=== PATIENT | female | born 1965 | race Caucasian/White ===

== ENCOUNTER 2021-01-29 23:13 | Emergency (ER) | payer OTHER ==
[~2021-01-29] VITALS: Ht 162.6 cm; Wt 89.8 kg
[2021-01-29 23:15] VITALS: BP 129/70
--- NOTE | 2021-01-29 23:15 | NUR ---
TO BED AMBULATORY
[2021-01-29] MEDS ORDERED: ASPIRIN 325 MG TAB PO ONE (23:55)
[2021-01-30 00:07] LABS: BASOPHILS % (AUTO) 0.9 % (0.0-2.0); EOSINOPHILS # (AUTO) 0.2 K/uL (0-0.4); EOSINOPHILS % (AUTO) 3.3 % (0.0-4.0); HEMATOCRIT 36.9 % (36-48); HEMOGLOBIN 12.5 g/dL (12.0-16.0); LYMPHOCYTES # (AUTO) 1.9 K/uL (2.5-16.5); LYMPHOCYTES % (AUTO) 34.3 % (20.5-51.1); MEAN CORPUSCULAR HEMOGLOBIN 29 pg (27-31); MEAN CORPUSCULAR HGB CONC 34 g/dL (33-37); MEAN CORPUSCULAR VOLUME 85.5 fL (80-94); MONOCYTES # (AUTO) 0.5 K/uL (0.8-1.0); MONOCYTES % (AUTO) 8.7 % (1.7-9.3); NEUTROPHILS # (AUTO) 2.9 K/uL (1.8-7.7); NEUTROPHILS % (AUTO) 52.8 % (42.2-75.2); PLATELET COUNT (AUTO) 287 K/uL (140-450); RED BLOOD CELL COUNT(AUTO) 4.32 MIL/uL (4.20-5.40); RED CELL DISTRIBUTION WIDTH 13.1 % (11.6-13.7); WHITE BLOOD COUNT (AUTO) 5.5 K/uL (4.8-10.8)
--- NOTE | 2021-01-30 00:08 | NUR ---
55 YO F BIB SELF FOR SEVERE CHEST PAIN . PAIN STARTED AT 3 PM AND RADIATES TO LT ARM AROUND 6 PM. PT STATED THAT SHE HAS A HEADACHE AND LETHARGY. PT IS NOT A SMOKER, NO FAMILY HX OF HEART ATTACK. PT DENIES N/F/V/COUGH/DIARRHEA. PT HAS MODERNA COVID VACCINE. PATIENT VITALS STABLE. NO SIGNS OF RESPIRATORY DISTRESS. MED HX: HTN , HIGH CHOLESTEROL PREVIOUS SURGERY: HYSTERECTOMY
[2021-01-30 00:23] LABS: ALBUMIN 3.8 g/dL (3.4-5.0); ANION GAP 11.9 (8-16); CARBON DIOXIDE 27.9 mmol/L (21-32); CREATININE 1.1 mg/dL (0.6-1.3); POTASSIUM 3.8 mmol/L (3.5-5.1); TOTAL BILIRUBIN 0.2 mg/dL (0.0-1.0)
--- NOTE | 2021-01-30 01:45 | NUR ---
PT LAYING DOWN QUIETLY. PROVIDED WATM BLANKET AND TURNED OFF LIGHTS. BED IN LOWEST POSITION.
[2021-01-30] MEDS ORDERED: HYDROcodone/APAP 5/325 MG 1 TAB TAB PO ONE (02:45)
[2021-01-30] MEDS ORDERED: ACET-8386 PO (04:26)
[2021-01-30 04:40] VITALS: BP 90/51
--- NOTE | 2021-01-30 04:44 | NUR ---
Patient discharged with v/s stable. Written and verbal after care instructions given and explained. Patient alert, oriented and verbalized understanding of instructions. Ambulatory with steady gait. All questions addressed prior to discharge. ID band removed. Patient advised to follow up with PMD. Rx of HYDROCONE/ACETAMINOPHEN 5-325 given. Opportunity to ask questions provided and answered.
--- NOTE | 2021-01-30 05:15 | NUR ---
The patient's care was reviewed and supervised by MARIE ORTIZ RN.
== END 2021-01-30 04:44 | disposition home or self-care (01) ==
LOC: MED 23:13
DX: R07.89 Other chest pain (principal); I10 Essential (primary) hypertension; Z90.49 Acquired absence of other specified parts of digestive tract; Z90.710 Acquired absence of both cervix and uterus; Z79.899 Other long term (current) drug therapy
CPT/HCPCS: 36415; 71045; 80053; 83690; 84484; 85025; 93005; 99285; Q0092

== ENCOUNTER 2021-05-09 18:18 | Emergency (ER) | payer OTHER ==
[~2021-05-09] VITALS: Ht 162.6 cm; Wt 88.9 kg
[~2021-05-09 18:18] MED LIST: ACET-8386 PO
[2021-05-09 18:31] VITALS: BP 157/92
[2021-05-09] MEDS ORDERED: OFLO10SO2 OP (20:27)
[2021-05-09] MEDS ORDERED: NAPR-54 PO (20:27)
[2021-05-09] MEDS ORDERED: CARB15DR61 OT (20:38)
--- NOTE | 2021-05-09 20:50 | NUR ---
SEEN BY CHINO AND PA NO NURSING INTERVENTION PROVIDED FOR THIS PATIENT.
[2021-05-09 20:52] VITALS: BP 157/92
[2021-05-09] MEDS ORDERED: OFLO5SOL27 RIGHT EAR (20:52)
--- NOTE | 2021-05-09 20:52 | NUR ---
Patient discharged with v/s stable. Written and verbal after care instructions given and explained. Patient alert, oriented and verbalized understanding of instructions. Ambulatory with steady gait. All questions addressed prior to discharge. ID band removed. Patient advised to follow up with PMD. Rx of OFLOXACIN, NAPROXEN, AND CARBAMIDE PEROXIDE given. Patient educated on indication of medication including possible reaction and side effects. Opportunity to ask questions provided and answered.
== END 2021-05-09 20:52 | disposition home or self-care (01) ==
LOC: MED 18:18
DX: H60.91 Unspecified otitis externa, right ear (principal); Z79.899 Other long term (current) drug therapy
CPT/HCPCS: 99283

== ENCOUNTER 2021-08-23 12:15 | Emergency (ER) | payer OTHER ==
[~2021-08-23] VITALS: Ht 162.6 cm; Wt 86.6 kg
[~2021-08-23 12:15] MED LIST changes: +CARB15DR61 OT; +NAPR-54 PO; +OFLO5SOL27 RIGHT EAR
[2021-08-23 12:47] VITALS: BP 150/88
--- NOTE | 2021-08-23 12:55 | NUR ---
[facility]: RIGHT EYE 20/20, LEFT EYE 20/40, BOTH EYE 20/20
--- NOTE | 2021-08-23 13:13 | NUR ---
PT AMB TO BED 9
[2021-08-23] MEDS: FLUORESCEIN OPTH STRIP 1 MG OP ONE (13:23)
[2021-08-23] MEDS: TETRACAINE HCL/PF 0.5% OPTH 4 ML BTL OP ONE (13:23)
--- NOTE | 2021-08-23 13:28 | NUR ---
55Y FEMALE BIB SELF WITH C/O BRENNAN EYES PAIN, REDNESS, SENSITIVE TO LIGHT, BLURRED VISION X 2 DAYS. PT ALSO HAS C/O HEADACHE X2 DAYS THAT IS 6/10 AND THROBBING LIKE. PERRL INTACT. PT DENIES HITTING HEAD OR GETTING ANYTHING IN HER EYES. PT A&OX4. DENIES ANY CP/SOB. PT A&OX4 [facility]: RIGHT EYE 20/20, LEFT EYE 20/40, BOTH EYE 20/20 PMH: DENIES
[2021-08-23] MEDS ORDERED: POLY10SO OP (14:35)
[2021-08-23] MEDS ORDERED: KETO5SOL OP (14:35)
[2021-08-23] MEDS ORDERED: LORA10TA60 PO (14:35)
--- NOTE | 2021-08-23 14:56 | NUR ---
Patient discharged with v/s stable. Written and verbal after care instructions given and explained. Patient alert, oriented and verbalized understanding of instructions. Ambulatory with steady gait. All questions addressed prior to discharge. ID band removed. Patient advised to follow up with PMD. Rx of KETOROLAAC TROMETHAMINE, LORATADINE, AND POLYTRIM EYE DROPS given. Patient educated on indication of medication including possible reaction and side effects. Opportunity to ask questions provided and answered.
== END 2021-08-23 14:55 | disposition home or self-care (01) ==
LOC: MED 12:15
DX: H10.9 Unspecified conjunctivitis (principal); I10 Essential (primary) hypertension; Z79.899 Other long term (current) drug therapy
CPT/HCPCS: 99283

== ENCOUNTER 2021-12-29 02:42 | Emergency (ER) | payer OTHER ==
[~2021-12-29] VITALS: Ht 162.6 cm; Wt 83.9 kg
[~2021-12-29 02:42] MED LIST changes: +KETO5SOL OP; +LORA10TA60 PO; +POLY10SO OP
[2021-12-29 02:50] VITALS: BP 123/49
[2021-12-29] MEDS ORDERED: KETOROLAC 30 MG/ML VIAL IM ONE (03:10)
--- NOTE | 2021-12-29 03:15 | NUR ---
Pt coming from home ambulatory with steady gait. Pt c/o right ankle pain and swelling that started 2 weeks ago but got worse the past 3 days. No loss of sensation and cap refill is less than 3 seconds. Pt is A&Ox4. Has hx of Hyperlipidemi and HTN and varicose veins. NKA. No chest pain and no sob. Denies n/v. VSS. Bed in lowest position.
--- NOTE | 2021-12-29 03:20 | NUR ---
Dr. Jean Baptiste at bedside.
--- NOTE | 2021-12-29 04:25 | NUR ---
Called X-Ray and US due to order being placed at 3am and still not being done. They stated they will come right now to do X-Ray and US.
--- NOTE | 2021-12-29 04:33 | NUR ---
RAD AT BEDSIDE
--- NOTE | 2021-12-29 04:34 | NUR ---
X-Ray at bedside.
--- NOTE | 2021-12-29 05:22 | NUR ---
Ultrasound still has not been done. Dr. Jean Baptiste aware.
--- NOTE | 2021-12-29 05:50 | NUR ---
Ultrasound being done at bedside.
[2021-12-29 06:55] VITALS: BP 115/77
--- NOTE | 2021-12-29 06:55 | NUR ---
Patient discharged with v/s stable. Written and verbal after care instructions given and explained. Patient verbalized understanding. Ambulatory with steady gait. All questions addressed prior to discharge. Advised to follow up with PMD.
== END 2021-12-29 06:55 | disposition home or self-care (01) ==
LOC: MED 02:42
DX: S86.011A Strain of right Achilles tendon, initial encounter (principal); I10 Essential (primary) hypertension; Z90.49 Acquired absence of other specified parts of digestive tract; Z90.710 Acquired absence of both cervix and uterus; Z79.899 Other long term (current) drug therapy; X58.XXXA Exposure to other specified factors, initial encounter; Y93.89 Activity, other specified; Y92.89 Other specified places as the place of occurrence of the external cause; Y99.8 Other external cause status
CPT/HCPCS: 73650; 93971; 96372; 99284; J1885; Q0092